=== PATIENT | female | born 1985 | race Caucasian/White ===

== ENCOUNTER 2023-05-03 08:00 | Emergency (ER) | payer OTHER, SELFPAY ==
[2023-05-03 08:05] VITALS: BP 154/103; PULSE 91; RESP 18; TEMP 36.7; O2SAT 97; BMI 32.6
--- NOTE | 2023-05-03 08:14 | ED_ITS ---
HPI - General Adult General Chief complaint: Extremity Problem, Nontraumatic Stated complaint: RIGHT LEG PAIN Time Seen by Provider: 05/03/23 08:14 History of Present Illness HPI narrative: A shunt presents to the emergency department complaining of right leg pain. 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 She has noted bulging, lumps, or nodules to the anterior distal femur area. She states it is tender to palpation. Patient denies any lower extremity edema, or cramping. She denies any history of thromboembolic disease. She states her grandmother and mother had clots in the lungs. She denies any cramping. Eyes any paresthesias, or weakness. Patient has taken Advil for pain. She denies any fever, chills. Related Data Home Medications Medication Instructions Recorded Confirmed lisinopril 20 1 tab PO QDAY 05/03/23 05/03/23 mg-hydrochlorothiazide 25 mg tablet pantoprazole 40 mg tablet,delayed 40 mg PO Q12H 05/03/23 05/03/23 release venlafaxine 150 mg 150 mg PO BEDTIME 05/03/23 05/03/23 capsule,extended release 24 hr venlafaxine 37.5 mg 37.5 mg PO BEDTIME 05/03/23 05/03/23 capsule,extended release 24 hr Allergies Allergy/AdvReac Type Severity Reaction Status Date / Time No Known Drug Allergies Allergy Verified 05/03/23 08:16 Review of Systems ROS Status of ROS 10 or more systems reviewed and unremarkable except as noted in history and below [facility] Medical History (Updated 05/03/23 @ 09:23 by Izzy Yanez MD) Social History Smoking status: Current every day smoker Exam Narrative Exam Narrative: Nurses notes and vital signs reviewed and patient is not hypoxic. General: Nontoxic, Well-appearing and in no apparent distress. Skin: Warm, dry, no pallor noted. No Rash Head: Normocephalic, atraumatic. Neck: Supple, non-tender. Eye: Pupils are equal, round and EOMI. No scleral icterus. Ears, Nose, Mouth, and Throat: TM clear, no posterior oropharynx erythema or nasal mucosal hypertrophy, uvula is mid-line Oral mucosa is moist Cardiovascular: Regular Rate and Rhythm without murmur, gallop or rub. Respiratory: No accessory muscle use or respiratory distress. Lungs are clear to auscultation, no wheezing, rales or rhonchi Chest Wall: no tenderness Back: No midline thoracic or lumbar vertebral tenderness. No CVA tenderness Musculoskeletal: 4 cm in diameter subcutaneous pain is soft tissue nodule consistent with a lipoma. Patient states that it is very tender to palpation. No erythema or ecchymosis noted. There is no proximal streaking. normal ROM, no calf or popliteal tenderness, no lower extremity edema/swelling, DP +2, tp +2, capillary refill is brisk. GI: Abdomen is soft, non-distended. Normal bowel sounds. No masses appreciated. No tenderness to palpation. No rebound, guarding, or rigidity noted. Neurological: A&O x4. No cranial nerve dysfunction observed. No truncal ataxia. Moves all extremities. Sensation intact. Psychiatric: Cooperative and interactive. Normal mood and affect. Constitutional Vital Signs, click to edit/add: Last Vital Signs Temp 98.1 F 05/03/23 08:05 Pulse 91 H 05/03/23 08:05 Resp 18 05/03/23 08:05 BP 154/103 H 05/03/23 08:05 Pulse Ox 97 05/03/23 08:05 O2 Del Method Room Air 05/03/23 08:05 Course Vital Signs Vital signs: Vital Signs Temperature 98.1 F 05/03/23 08:05 Pulse Rate 91 H 05/03/23 08:05 Respiratory Rate 18 05/03/23 08:05 Blood Pressure 154/103 H 05/03/23 08:05 Pulse Oximetry 97 05/03/23 08:05 Oxygen Delivery Method Room Air 05/03/23 08:05 Temperature 98.1 F 05/03/23 08:05 Pulse Rate 91 H 05/03/23 08:05 Respiratory Rate 18 05/03/23 08:05 Blood Pressure 154/103 H 05/03/23 08:05 Pulse Oximetry 97 05/03/23 08:05 Oxygen Delivery Method Room Air 05/03/23 08:05 Medical Decision Making MDM Narrative Medical decision making narrative: Lower extremity Doppler is negative for deep vein thrombosis. Sounds of the area for concern did not show any abscess or fluid accumulation. X-ray did not show any bony abnormality. All results were discussed with patient. Advised follow-up with primary care doctor. She can take Motrin or tylenol as needed for pain. At this time the patient is without objective evidence of an acute process requiring hospitalization or inpatient management. The patient has remained hemodynamically stable. No additional indication for emergent studies at this time. I answered all questions. Discussed discharge instructions including standard anticipatory guidance and what should prompt a return to the emergency department, including if they get worse are not getting better or develops any new or concerning symptoms. I've given them specific time frame in which to follow-up, and who to follow-up with. The patient demonstrates understanding. Patient is nontoxic and stable for discharge with outpatient follow-up. This note was created with the assistance of a speech recognition program. Although the intention is to generate documents that actually reflects the content of the visit, no guarantees can be provided that every mistake has been identified and corrected by editing. Discharge Plan Discharge Chief Complaint: Extremity Problem, Nontraumatic Clinical Impression: Lipoma Patient Disposition: Home, Self-Care Time of Disposition Decision: 09:22 Condition: Good Mode of Transportation: Private Vehicle Prescriptions / Home Meds: No Action lisinopril-hydrochlorothiazide 20-25 mg tablet 1 tab PO QDAY pantoprazole 40 mg tablet,delayed release (DR/EC) 40 mg PO Q12H venlafaxine 150 mg capsule,extended release 24hr 150 mg PO BEDTIME venlafaxine 37.5 mg capsule,extended release 24hr 37.5 mg PO BEDTIME Instructions: Soft Tissue Mass (ED) Stand Alone Forms: Portal Instructions Referrals: SHERRELL HUERTA [Primary Care Provider] - 1 week Discharge Date/Time: 05/03/23 09:29
--- NOTE | 2023-05-03 08:19 | XR_ITS ---
The [address] [address] Patient Name: ROSE WREN MRN: [id number] date: 1985 Sex: F Assigned Patient Location: ER Current Patient Location: ER Accession/Order Number: [id number] Exam Date: 05/03/2023 08:30 Report Date: 05/03/2023 08:59 At the request of: BRIAN JOHNSON Procedure: XR femur RT 2V PROCEDURE: XR femur RT 2V HISTORY: nodule COMPARISON: None. FINDINGS: BONES:No fracture, acute abnormality, or significant arthropathy. SOFT TISSUES:Skin surface marker localizing the area of concern is seen overlying the middistal anterior lateral thigh; no appreciable mass, soft tissue swelling, or foreign body. EFFUSION:None visible. OTHER: Negative. XR/XR femur RT 2V IMPRESSION: 1. No suspicious findings to account for patient's symptoms. Electronically authenticated by: KAE PEACOCK Date: 05/03/2023 08:59
--- NOTE | 2023-05-03 08:19 | US_ITS ---
The [place] [id number] Patient Name: ROSE WREN MRN: [id number] date: 1985 Sex: F Assigned Patient Location: ER Current Patient Location: ER Accession/Order Number: [id number] Exam Date: 05/03/2023 08:30 Report Date: 05/03/2023 09:04 At the request of: BRIAN JOHNSON Procedure: US venous doppler LE RT Ultrasound venous duplex scan right lower extremity CLINICAL: Right leg lump on thigh for 2 weeks. Denies injury. TECHNIQUE: Pwoell-scale, color Doppler and Duplex examination of the right lower extremity was performed with and without provocative maneuvers. FINDINGS: Comparison: None. Sonographic examination of the right lower extremity deep venous system to include the common femoral, superficial femoral and popliteal veins, demonstrates normal compressibility, color-flow, respiratory variation, and augmentation. The origin of the greater saphenous vein demonstrates normal compression, and there is normal color-flow in the proximal profunda femoral vein. There is normal compressibility of the posterior tibial and peroneal veins. Normal compression of the small saphenous and greater saphenous veins in the calf. Patient's area of palpable concern in the anterior right thigh demonstrates no sonographic abnormality. US/US venous doppler LE RT IMPRESSION: 1. No deep venous thrombosis in the right lower extremity. 2. No sonographic abnormality at patient's area of concern in the anterior right thigh. Electronically authenticated by: EBENEZER CHERRY Date: 05/03/2023 09:04
== END 2023-05-03 09:29 | disposition home or self-care (01) ==
PROVIDERS: Emergency Provider Emergency Medicine; PCP Family Medicine
DX: D17.23 Benign lipomatous neoplasm of skin and subcutaneous tissue of right leg (principal); Z79.899 Other long term (current) drug therapy; F17.210 Nicotine dependence, cigarettes, uncomplicated
CPT/HCPCS: 73552; 93971; 99284